=== PATIENT | male | born 1985 | race Caucasian/White ===

== ENCOUNTER 2017-02-23 01:23 | Inpatient (IN) | payer MEDICAID ==
[~2017-02-23] VITALS: Ht 172.7 cm; Wt 98.7 kg
[2017-02-23 01:25] VITALS: BP 143/82; PULSE 99; RESP 20; TEMP 97.9; O2SAT 99
[2017-02-23 02:24] LABS: AMPHETAMINE, URINE NEG (NEG); BARBITURATES, URINE NEG (NEG); COCAINE, URINE NEG (NEG)
[2017-02-23 02:26] LABS: AUTOMATED NEUTROPHIL # 2.5 TH/MM3 (1.8-7.7); BASOPHIL % 0.4 % (0.0-2.0); EOSINOPHIL # 0.1 TH/MM3 (0-0.4); EOSINOPHIL % 1.6 % (0.0-4.0); HEMATOCRIT 37.8 % (39.0-51.0); HEMO FLAGS DIFF FINAL; LYMPH % 38.7 % (9.0-44.0); LYMPHOCYTE # 1.8 TH/MM3 (1.0-4.8); MEAN CELL VOLUME 85.3 FL (80.0-100.0); MEAN CORPUSCULAR HGB CONC 35.2 % (32.0-36.0); MONO % 6.1 % (0.0-8.0); NEUT % 53.2 % (16.0-70.0); PLATELET COUNT 188 TH/MM3 (150-450); RED BLOOD COUNT 4.43 MIL/MM3 (4.50-5.90); RED CELL DISTRIBUTION WIDTH 13.9 % (11.6-17.2); WHITE BLOOD COUNT 4.6 TH/MM3 (4.0-11.0)
[2017-02-23 02:43] LABS: ACETAMINOPHEN LESS THAN 2.0 MCG/ML (10.0-30.0); ALT (GPT) 25 U/L (12-78); ANION GAP 10 MEQ/L (5-15); AST (GOT) 16 U/L (15-37); BICARBONATE 21.8 MEQ/L (21.0-32.0); BLOOD UREA NITROGEN 7 MG/DL (7-18); CHLORIDE 114 MEQ/L (98-107); GLOMERULAR FILTRATION RATE 105 ML/MIN (>89); POTASSIUM 3.6 MEQ/L (3.5-5.1); SODIUM (NA) 146 MEQ/L (136-145)
[2017-02-23 02:44] LABS: ALKALINE PHOSPHATASE 46 U/L (45-117); TOTAL BILIRUBIN ADULT 0.3 MG/DL (0.2-1.0)
--- NOTE | 2017-02-23 03:37 | PD ---
HPI Chief Complaint: Psychiatric Symptoms Time Seen by Provider: 03:32 Travel History International Travel<30 days: No Contact w/Intl Traveler<30days: No Traveled to known affect area: No History of Present Illness HPI 31-year-old white male presents emergency department on a voluntary basis for psychological evaluation. The patient states that he had moved down from [place] back in October. He has been homeless on the streets since then. He states that he has mental illness but does not know what the diagnosis is. He has been off medications for many months. He states that this week he has had problems with thoughts of self-harm. He has been hearing voices but he cannot hear what they're saying. He feels that they are within his head. Sometimes he feels as if he's hearing his own voice. He states that he has cut his wrists in the past. He has contemplated cutting his wrists as well as his thigh and hopes to . He also states that he's had thoughts of hurting other people. He does not have any plan on hurting anyone at this time. He has problems with anger he states. He denies any event that has occurred here recently has been in feel this way. 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 He does admit to marijuana and alcohol. No toxic ingestions. No medical complaints otherwise. PFSH Past Medical History Bipolar Disorder: Yes Depression: Yes Diminished Hearing: No Tetanus Vaccination: < 5 Years Influenza Vaccination: No Social History Alcohol Use: Yes (twice weekly) Tobacco Use: Yes (1 pack q 3 days) Substance Use: Yes (occ canabis) Allergies-Medications (Allergen,Severity, Reaction): Coded Allergies: No Known Allergies (Unverified , 02/23/17) Reported Meds & Prescriptions Reported Meds & Active Scripts Active No Active Prescriptions or Reported Medications Review of Systems Psychiatric: Positive: Depression, Suicidal Ideations, Disorder of Thought, Mood Disorder, Substance Abuse, Homicidal Ideation, No: Anxiety Physical Exam Narrative GENERAL: Well-nourished, well-developed patient. SKIN: Warm and dry. Old scars to the left wrist but no evidence of any acute injury HEAD: Normocephalic and atraumatic. EYES: No scleral icterus. No injection or drainage. ENT: No nasal drainage noted. Mucous membranes pink. Airway patent. NECK: Supple, trachea midline. Moves head freely without obvious discomfort. CARDIOVASCULAR: Regular rate and rhythm without murmurs, gallops, or rubs. RESPIRATORY: Breath sounds equal bilaterally. No accessory muscle use. GASTROINTESTINAL: Abdomen soft, non-tender, nondistended. EXTREMITIES: No cyanosis or edema. BACK: Nontender without obvious deformity. No CVA tenderness. NEURO: Patient is alert and oriented. no sensorimotor deficits. Nonfocal. Normal speech. PSYCH: No delusions. Positive auditory but no visual hallucinations. Data Data Last Documented VS Vital Signs Date Time Temp Pulse Resp B/P Pulse Ox O2 Delivery O2 Flow Rate FiO2 02/23/17 01:25 97.9 99 20 143/82 99 Orders Complete Blood Count With Diff (02/23/17 01:43) Comprehensive Metabolic Panel (02/23/17 01:43) Psych Screen (02/23/17 01:43) Drug Screen, Random Urine (02/23/17 01:43) Alcohol (Ethanol) (02/23/17 01:43) Salicylates (Aspirin) (02/23/17 01:43) Tylenol (Acetaminophen) (02/23/17 01:43) Labs Laboratory Tests Test 02/23/17 02:00 White Blood Count 4.6 TH/MM3 Red Blood Count 4.43 MIL/MM3 Hemoglobin 13.3 GM/DL Hematocrit 37.8 % Mean Corpuscular Volume 85.3 FL Mean Corpuscular Hemoglobin 30.0 PG Mean Corpuscular Hemoglobin 35.2 % Concent Red Cell Distribution Width 13.9 % Platelet Count 188 TH/MM3 Mean Platelet Volume 8.3 FL Neutrophils (%) (Auto) 53.2 % Lymphocytes (%) (Auto) 38.7 % Monocytes (%) (Auto) 6.1 % Eosinophils (%) (Auto) 1.6 % Basophils (%) (Auto) 0.4 % Neutrophils # (Auto) 2.5 TH/MM3 Lymphocytes # (Auto) 1.8 TH/MM3 Monocytes # (Auto) 0.3 TH/MM3 Eosinophils # (Auto) 0.1 TH/MM3 Basophils # (Auto) 0.0 TH/MM3 CBC Comment DIFF FINAL Differential Comment Sodium Level 146 MEQ/L Potassium Level 3.6 MEQ/L Chloride Level 114 MEQ/L Carbon Dioxide Level 21.8 MEQ/L Anion Gap 10 MEQ/L Blood Urea Nitrogen 7 MG/DL Creatinine 0.85 MG/DL Estimat Glomerular Filtration 105 ML/MIN Rate Random Glucose 83 MG/DL Calcium Level 8.6 MG/DL Total Bilirubin 0.3 MG/DL Aspartate Amino Transf 16 U/L (AST/SGOT) Alanine Aminotransferase 25 U/L (ALT/SGPT) Alkaline Phosphatase 46 U/L Total Protein 6.8 GM/DL Albumin 3.7 GM/DL Salicylates Level 1.9 MG/DL Urine Opiates Screen NEG Acetaminophen Level LESS THAN 2.0 MCG/ML Urine Barbiturates Screen NEG Urine Amphetamines Screen NEG Urine Benzodiazepines Screen NEG Urine Cocaine Screen NEG Urine Cannabinoids Screen POS Ethyl Alcohol Level 50 MG/DL MDM Medical Decision Making Medical Screen Exam Complete: Yes Emergency Medical Condition: Yes Medical Record Reviewed: Yes Interpretation(s) Laboratory Tests Test 02/23/17 02:00 White Blood Count 4.6 TH/MM3 Red Blood Count 4.43 MIL/MM3 Hemoglobin 13.3 GM/DL Hematocrit 37.8 % Mean Corpuscular Volume 85.3 FL Mean Corpuscular Hemoglobin 30.0 PG Mean Corpuscular Hemoglobin 35.2 % Concent Red Cell Distribution Width 13.9 % Platelet Count 188 TH/MM3 Mean Platelet Volume 8.3 FL Neutrophils (%) (Auto) 53.2 % Lymphocytes (%) (Auto) 38.7 % Monocytes (%) (Auto) 6.1 % Eosinophils (%) (Auto) 1.6 % Basophils (%) (Auto) 0.4 % Neutrophils # (Auto) 2.5 TH/MM3 Lymphocytes # (Auto) 1.8 TH/MM3 Monocytes # (Auto) 0.3 TH/MM3 Eosinophils # (Auto) 0.1 TH/MM3 Basophils # (Auto) 0.0 TH/MM3 CBC Comment DIFF FINAL Differential Comment Sodium Level 146 MEQ/L Potassium Level 3.6 MEQ/L Chloride Level 114 MEQ/L Carbon Dioxide Level 21.8 MEQ/L Anion Gap 10 MEQ/L Blood Urea Nitrogen 7 MG/DL Creatinine 0.85 MG/DL Estimat Glomerular Filtration 105 ML/MIN Rate Random Glucose 83 MG/DL Calcium Level 8.6 MG/DL Total Bilirubin 0.3 MG/DL Aspartate Amino Transf 16 U/L (AST/SGOT) Alanine Aminotransferase 25 U/L (ALT/SGPT) Alkaline Phosphatase 46 U/L Total Protein 6.8 GM/DL Albumin 3.7 GM/DL Salicylates Level 1.9 MG/DL Urine Opiates Screen NEG Acetaminophen Level LESS THAN 2.0 MCG/ML Urine Barbiturates Screen NEG Urine Amphetamines Screen NEG Urine Benzodiazepines Screen NEG Urine Cocaine Screen NEG Urine Cannabinoids Screen POS Ethyl Alcohol Level 50 MG/DL Differential Diagnosis MDM: High Differential diagnoses: Schizophrenia, schizoaffective disorder, bipolar, anxiety, depression, adjustment reaction, mood disorder NOS, ODD, depressive disorder NOS, dementia, dementia with agitation, psychosis NOS, substance induced mood disorder, intermittent explosive disorder, Asperger syndrome, infection,electrolyte abnormality, malingering. Narrative Course Mental health screening discussed with the patient. Psychiatric screen ordered. The patient been medically clear. This is bipolar with psychotic features Diagnosis Primary Impression: Bipolar disorder with psychotic features Additional Impression: PSA Patient Instructions: General Instructions Scripts No Active Prescriptions or Reported Meds Condition: Thierno Rodas Feb 23, 2017 03:37
[2017-02-23 04:48] VITALS: BP 139/64; PULSE 73; RESP 16; O2SAT 98
[2017-02-23 06:37] VITALS: BP 123/69; PULSE 72; RESP 18; O2SAT 98
[2017-02-23 09:39] VITALS: BP 128/73; PULSE 80; RESP 18; O2SAT 99
[2017-02-23 18:02] VITALS: BP 142/70; PULSE 75; RESP 18; O2SAT 100
[2017-02-23 22:18] VITALS: BP 120/75; PULSE 64; RESP 19; O2SAT 99
[2017-02-24 02:22] VITALS: BP 131/51; PULSE 61; RESP 19; O2SAT 100
[2017-02-24 06:08] VITALS: BP 119/72; PULSE 54; RESP 18; O2SAT 98
[2017-02-24 16:57] VITALS: BP 119/72; PULSE 54; RESP 18; O2SAT 98
[2017-02-24] MEDS ORDERED: ACETAMINOPHEN 325 MG TAB PO PRN (17:15)
[2017-02-24] MEDS ORDERED: MAGNESIUM HYDROXIDE SUSP 30 ML CUP PO PRN (17:15)
[2017-02-24] MEDS ORDERED: LORazepam 0.5 MG TAB PO PRN (17:15)
[2017-02-24] MEDS: NICOTINE 21 MG/24 HR PATCH T-DERMAL SCH (17:15)
[2017-02-24] MEDS ORDERED: ALUMINUM/MAGNESIUM/SIMETH 30 ML CUP PO PRN (17:15)
[2017-02-24] MEDS ORDERED: LORazepam 2 MG/ML VIAL IM PRN ×2 (17:15)
[2017-02-24 18:03] VITALS: BP 142/73; PULSE 66; RESP 16; TEMP 99.2; O2SAT 96
[2017-02-24] MEDS: LORazepam 1 MG TAB PO PRN (20:59)
[2017-02-25 06:14] VITALS: BP 134/77; PULSE 62; RESP 18; TEMP 97.8; O2SAT 98
[2017-02-25 08:23] LABS: ANION GAP 9 MEQ/L (5-15); BICARBONATE 26.3 MEQ/L (21.0-32.0); BLOOD UREA NITROGEN 15 MG/DL (7-18); CHLORIDE 106 MEQ/L (98-107); GLOMERULAR FILTRATION RATE 116 ML/MIN (>89); HDL CHOLESTEROL 52.8 MG/DL (40.0-60.0); LDL CHOLESTEROL 57 MG/DL (0-99); SODIUM (NA) 141 MEQ/L (136-145)
[2017-02-25] MEDS: NICOTINE 21 MG/24 HR PATCH T-DERMAL SCH (08:57)
[2017-02-25] MEDS: LORazepam 1 MG TAB PO PRN (09:16)
[2017-02-25] MEDS ORDERED: diphenhydrAMINE HCL 50 MG CAP PO PRN (09:45)
[2017-02-25] MEDS ORDERED: PILL SPLITTER OTHER PRN (10:15)
--- NOTE | 2017-02-25 11:24 | HHI.HP ---
Provisional Diagnosis Admission Date Feb 24, 2017 at 17:13 [place]. Bipolar affective disorder most recent episode mixed with psychotic features f 31.64, marijuana abuse f 12.10, alcohol abuse F10.10 Certification of Person's Competence To Provide Express and Informed Consent I have personally examined John Varma , a person being served at [facility] on, Feb 25, 2017 10:45. Express and informed consent means consent voluntarily given in writing, by a competent person, after sufficient explanation and disclosure of the subject matter involved to enable the person to make a knowing and willful decision without any element of force, fraud, deceit, duress, or other form of constraint or coercion. This person is 18 years of age or older, is not now known to be incompetent to consent to treatment with a guardian advocate, and does not have a health care surrogate or proxy currently making medical treatment decisions. I have found this person to be one of the following: [x] Competent to provide express and informed consent, as defined above, for voluntary admission to this facility and is competent to provide express and informed consent for treatment. He/she has the consistent capacity to make well reasoned, willful, and knowing decisions concerning his or her medical or mental health treatment. The person fully and consistently understands the purpose of the admission for examination/placement and is fully capable of personally exercising all rights assured [place] Incompetent to provide express and informed consent to voluntary admission, and this is incompetent to provide express and informed consent to treatment. The person must be transferred to involuntary status and a petition for a guardian advocate filed with the Circuit Court. [] Refusing to provide express and informed consent to voluntary admission but is competent to provide express and informed consent for treatment. The person must be discharged or transferred to involuntary status. Form shall be completed within 24 hours of a person's arrival at the receiving facility and filed in the clinical record of each person: 1. Admitted on a voluntary basis 2. Permitted to provide express and informed consent to his/her own treatment 3. Allowed to transfer from involuntary to voluntary status 4. Prior to permitting a person to consent to his or her own treatment after having been previously found incompetent to consent to treatment. History of Present Illness Capacity: Has Capacity HPI Patient is a 31-year-old white male who comes to the ED on a voluntary basis. Patient gives a 2 week plus history of increasing depression with increased auditory hallucinations of a threatening nature with increased suicidal ideation intent and plan to either cut his wrists, or drink rat poison, or step in front of traffic. Patient acknowledges increased initial and mid insomnia, with decreased energy, some decreased concentration and attention. Though he states his appetite is okay. Acknowledges increased auditory hallucinations of a threatening nature, and the suicidal ideation, in the ED urine toxicology positive for marijuana and a blood alcohol level of 50. Patient acknowledges a long history of alcohol abuse. 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 He has had brief incarceration related to the DUIs. He denies detox or rehabilitation. At the present time he states he drinks 2-3 times per week both beer and hard liquor, he acknowledges history of blackout spells passing out spells. And The DUIs as mentioned above. He also states he uses marijuana 2-3 times per day. He states a past history of hallucinogenic use, cocaine use and snorting, and misuse of opiates. He denies misuse of benzodiazepines. Patient also has a mental health history states 3 or 4 psychiatric hospitalizations in [place]. He states a history of suicide attempts leading to those admissions. He states he has been on Zoloft and Respinol in the past. He is been down here from [place] since October 2016. 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 Patient acknowledges that persistent auditory hallucinations of a demeaning insulting command nature telling him to harm himself. Patient denies any physical or sexual abuse as a child, denies any mental health or addictions issue in his family. Patient states she had 2 daughters, one daughter at 3 years of age of multiple abnormalities, he has surviving 10-year-old daughter in [place]. At this time patient does meet criteria for an inpatient psychiatric hospitalization considering his depression and his suicidal ideation intent and plan. I feel he does have capacity to sign voluntary and participate in his treatment. We will start him on Zoloft 25 mg daily and Resporal 1 mg twice a day. Hopefully this will be be a fairly short stay and we can return him to the community with probable follow-up through [facility] also referral to [facility] for voluntary substance abuse assessment. Refer also to AA/NA Review of Systems Constitutional: DENIES: Diaphoretic episodes, Fatigue, Fever, Weight gain, Weight loss, Chills, Dizziness, Change in appetite, Night Sweats Endocrine: DENIES: Heat/cold intolerance, Polydipsia, Polyuria, Polyphagia Eyes: DENIES: Blurred vision, Diplopia, Eye inflammation, Eye pain, Vision loss , Photosensitivity, Double Vision Ears, nose, mouth, throat: DENIES: Tinnitus, Hearing loss, Vertigo, Nasal discharge, Oral lesions, Throat pain, Hoarseness, Ear Pain, Running Nose, Epistaxis, Sinus Pain, Toothache, Odynophagia Respiratory: DENIES: Apneas, Cough, Snoring, Wheezing, Hemoptysis, Sputum production, Shortness of breath Cardiovascular: DENIES: Chest pain, Palpitations, Syncope, Dyspnea on Exertion , PND, Lower Extremity Edema, Orthopnea, Claudication Gastrointestinal: DENIES: Abdominal pain, Black stools, Bloody stools, Constipation, Diarrhea, Nausea, Vomiting, Difficulty Swallowing, Anorexia Genitourinary: DENIES: Sexual dysfunction, Urinary frequency, Urinary incontinence, Urgency, Hematuria, Dysuria, Nocturia, Penile Discharge, Testicular Pain, Testicular Swelling Musculoskeletal: DENIES: Joint pain, Muscle aches, Stiffness, Joint Swelling, Back pain, Neck pain Integumentary: DENIES: Abnormal pigmentation, Nail changes, Pruritus, Rash Hematologic/lymphatic: DENIES: Bruising, Lymphadenopathy Neurologic: DENIES: Abnormal gait, Headache, Localized weakness, Paresthesias, Seizures, Speech Problems, Tremor, Poor Balance Psychiatric: COMPLAINS OF: Mood changes, Depression, Hallucinations, Suicidal Ideation Past Psych History Psychological trauma history Denies physical or sexual abuse Violence risk - others (6 mos) Low Violence risk - self (6 mos) History of suicide attempts, now with suicidal ideation and plan Substance Abuse History Drugs/Alcohol past 12 months Active alcohol and marijuana Past Family Social History Coded Allergies: No Known Allergies (Unverified , 02/23/17) Past Medical History Medically cleared ED No Active Prescriptions or Reported Meds Current Medications Medications (Trade) Dose Ordered Sig/Selena Route Start Time Stop Time Status Last Admin (Tylenol) 650 mg Q4H PRN PO 02/24/17 17:15 (Milk Of Magnesia Liq) 30 ml DAILY PRN PO 02/24/17 17:15 (Mag-Al Plus Susp Liq) 30 ml Q6H PRN PO 02/24/17 17:15 (Habitrol 21 Mg Patch.24 Hr) 1 patch DAILY T-DERMAL 02/24/17 17:15 (Benadryl) 50 mg HS PRN PO 02/25/17 09:45 (Atarax) 50 mg Q6H PRN PO 02/25/17 09:45 (Zoloft) 25 mg DAILY PO 02/25/17 09:45 (risperDAL) 1 mg BID PO 02/25/17 09:45 (Pill Splitter) 1 ea UNSCH PRN OTHER 02/25/17 10:15 Family History Denies any mental health history or addictions history and family Social History Patient essentially homeless, though 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 Alcohol 2+ times per week marijuana daily Patient's Strengths (min. 2) Patient verbal [facility] cooperative Physical Exam Patient seen screened in ED exam reviewed and agreed with level signs blood pressure 134/77 pulse 62 respirations 18 Vital Signs Vital Signs Date Time Temp Pulse Resp B/P Pulse Ox O2 Delivery O2 Flow Rate FiO2 02/25/17 06:14 97.8 62 18 134/77 98 02/24/17 16:57 Room Air Mental Status Examination Alert oriented white male appears stated age stating, in his room with counselor Pearl present throughout session, calm cooperative with fair eye contact Appearance Clean and neat Speech: Unremarkable Orientation: x3 Memory: Unremarkable Thought Process: Logical, Organized Thought Content: Unremarkable, Other (auditory hallucinations of command nature ) Language [place] Fund of Knowledge Fair Hallucination Type: Auditory (of command threatening intimidating nature) Attention and Concentration: Other (fair) Suicidal Ideation: Yes (with intent and plan) Previous Suicide Attempts: Yes Homicidal Ideation: No Previous Homicide Attempts: No Insight: Poor Judgement: Poor Affect: Other (decreased range and intensity) Mood: Sad (and restricted) Motor Activity: Normal gait Assessment & Plan Problem List: (1) Alcohol abuse ICD Code: F10.10 (2) Bipolar disorder, current episode mixed, severe, with psychotic features ICD Code: F31.64 (3) Marijuana abuse ICD Code: F12.10 Assessment & Plan Estimated LOS: days at this time patient does meet criteria for inpatient psychiatric hospitalization. I feel he does have capacity to agreed to admission and medication management. We'll start patient on medication as mentioned above who was be fairly short stay with referral to services of the community Discharge Planning To be determined Request HC Surrog/Guard Advoc?: No Angelito Aranda MD Feb 25, 2017 11:24
[2017-02-25] MEDS: risperiDONE 1 MG TAB PO SCH ×2 (12:00→20:34)
[2017-02-25] MEDS: SERTRALINE HCL 50 MG TAB PO SCH (12:00)
[2017-02-25] MEDS ORDERED: *morphine SULFATE 8 MG/ML PERIprocedure ONLY ONE (12:51)
[2017-02-25 16:34] LABS: HEMOGLOBIN A1a 1.1 %; HEMOGLOBIN A1b 0.7 %; HEMOGLOBIN Ao 87.3 %; HEMOGLOBIN F 0.8 %; HEMOGLOBIN LA1C 1.7 %; HEMOGLOBIN P3 3.2 %
[2017-02-25 18:21] VITALS: BP 119/71; PULSE 80; RESP 18; TEMP 98.1; O2SAT 98
[2017-02-25] MEDS: hydrOXYzine HCL 50 MG TAB PO PRN (21:44)
[2017-02-26 06:41] VITALS: BP 126/68; PULSE 68; RESP 17; TEMP 96.6; O2SAT 99
[2017-02-26 08:36] LABS: ANION GAP 7 MEQ/L (5-15); AST (GOT) 9 U/L (15-37); BICARBONATE 26.2 MEQ/L (21.0-32.0); BLOOD UREA NITROGEN 16 MG/DL (7-18); CHLORIDE 109 MEQ/L (98-107); GLOMERULAR FILTRATION RATE 118 ML/MIN (>89); POTASSIUM 4.2 MEQ/L (3.5-5.1); SODIUM (NA) 142 MEQ/L (136-145)
[2017-02-26 08:47] LABS: ALKALINE PHOSPHATASE 41 U/L (45-117); ALT (GPT) 20 U/L (12-78); FREE T4 0.95 NG/DL (0.76-1.46); TOTAL BILIRUBIN ADULT 0.4 MG/DL (0.2-1.0)
[2017-02-26] MEDS ORDERED: NICOTINE 21 MG/24 HR PATCH T-DERMAL SCH (09:00)
[2017-02-26] MEDS: risperiDONE 1 MG TAB PO SCH ×2 (09:30→20:57)
[2017-02-26] MEDS: SERTRALINE HCL 50 MG TAB PO SCH (09:30)
[2017-02-26] MEDS: NICOTINE 21 MG/24 HR PATCH T-DERMAL SCH (09:30)
--- NOTE | 2017-02-26 14:32 | HHI.PYPN ---
Subjective Remarks Patient seen in the [facility] with nurse Yaima patient showing some slight increase in his affect though he still voices depression stating his suicidality went from a 10/10 to an 8/10. He states the voices have markedly diminished lower still intermittently present less intrusive. Compliant medications Review of Systems Except as stated in HPI: all other systems reviewed are Neg Objective Alert: Yes [place]: Person, Place, Date Mood: Calm, Depressed Affect: Restricted Memory Intact: Comment (poor) Hallucinations: Auditory (decreased) Delusions: No Delusion Type: Other (denies) Suicidal: Ideation (is decreased from 10 over 10-8) Homicidal: Ideation (denies) Insight/Judgement Very poor Labs Test 02/26/17 07:06 Sodium Level 142 MEQ/L Potassium Level 4.2 MEQ/L Chloride Level 109 MEQ/L Carbon Dioxide Level 26.2 MEQ/L Anion Gap 7 MEQ/L Blood Urea Nitrogen 16 MG/DL Creatinine 0.77 MG/DL Estimat Glomerular Filtration 118 ML/MIN Rate Random Glucose 78 MG/DL Calcium Level 8.8 MG/DL Total Bilirubin 0.4 MG/DL Aspartate Amino Transf 9 U/L (AST/SGOT) Alanine Aminotransferase 20 U/L (ALT/SGPT) Alkaline Phosphatase 41 U/L Total Protein 6.5 GM/DL Albumin 3.6 GM/DL Free Thyroxine 0.95 NG/DL Thyroid Stimulating Hormone 1.460 uIU/ML 3rd Gen Vitals/IOs Vital Signs Date Time Temp Pulse Resp B/P Pulse Ox O2 Delivery O2 Flow Rate FiO2 02/26/17 06:41 96.6 68 17 126/68 99 02/24/17 16:57 Room Air Intake and Output 02/25/17 02/25/17 02/26/17 08:00 16:00 00:00 Intake Total 240 ml 720 ml Balance 240 ml 720 ml Assessment & Plan Problem List: (1) Alcohol abuse ICD Code: F10.10 (2) Bipolar disorder, current episode mixed, severe, with psychotic features ICD Code: F31.64 (3) Marijuana abuse ICD Code: F12.10 Assessment & Plan Estimated LOS: days patient continues depressed with suicidal ideation but somewhat softer. Voices have diminished also. Compliant medication. Justification for Cont. Inpt. At this time patient will decompensate in place to the lower level of care Discharge Planning To be determined Request HC Surrog/Guard Advoc?: No Caliendo,Angelito E. MD Feb 26, 2017 14:32
[2017-02-26 19:32] VITALS: BP 138/71; PULSE 74; RESP 16; TEMP 98; O2SAT 100
[2017-02-26] MEDS: hydrOXYzine HCL 50 MG TAB PO PRN (20:57)
[2017-02-27 05:42] VITALS: BP 130/91; PULSE 63; RESP 16; TEMP 98.1
[2017-02-27] MEDS: NICOTINE 21 MG/24 HR PATCH T-DERMAL SCH (09:00)
[2017-02-27] MEDS: SERTRALINE HCL 50 MG TAB PO SCH (09:21)
[2017-02-27] MEDS: risperiDONE 1 MG TAB PO SCH ×2 (09:21→21:04)
--- NOTE | 2017-02-27 14:21 | HHI.PYPN ---
Subjective Remarks Patient seen in day room with nurse Yaima. Patient calmer appears more focused and relaxed with better eye contact affect also appears calmer. He now denies suicidality and voices. Has been compliant with medication for now continue treatment Review of Systems Except as stated in HPI: all other systems reviewed are Neg Objective Alert: Yes [place]: Person, Place, Date Mood: Calm, Depressed (slightly improved) Affect: Restricted (improving) Memory Intact: Comment (poor) Hallucinations: Auditory (decreased) Delusions: No Delusion Type: Other (denies) Suicidal: Ideation (denies) Homicidal: Ideation (denies) Insight/Judgment Poor Vitals/IOs Vital Signs Date Time Temp Pulse Resp B/P Pulse Ox O2 Delivery O2 Flow Rate FiO2 02/27/17 05:42 98.1 63 16 130/91 02/26/17 19:32 100 02/24/17 16:57 Room Air Assessment & Plan Problem List: (1) Alcohol abuse ICD Code: F10.10 (2) Bipolar disorder, current episode mixed, severe, with psychotic features ICD Code: F31.64 (3) Marijuana abuse ICD Code: F12.10 Assessment & Plan Estimated LOS: days patient showing decrease in his depression suicidality, compliant medications, for now continue treatment Justification for Cont. Inpt. At this time patient will decompensate if placed in the lower level of care Discharge Planning To be determined Request HC Surrog/Guard Advoc?: Angelito Stern MD Feb 27, 2017 14:20
[2017-02-27 19:00] VITALS: BP 123/63; PULSE 68; RESP 17; TEMP 98.4; O2SAT 98
[2017-02-27] MEDS: hydrOXYzine HCL 50 MG TAB PO PRN (21:04)
[2017-02-28 05:50] VITALS: BP 112/58; PULSE 57; RESP 18; TEMP 97.1; O2SAT 99
[2017-02-28] MEDS: NICOTINE 21 MG/24 HR PATCH T-DERMAL SCH (09:00)
[2017-02-28] MEDS: SERTRALINE HCL 50 MG TAB PO SCH (09:04)
[2017-02-28] MEDS: risperiDONE 1 MG TAB PO SCH ×2 (09:04→21:55)
--- NOTE | 2017-02-28 13:40 | HHI.PYPN ---
Subjective Remarks Patient was seen and case discussed with nursing. Patient is pleasant and cooperative with exam. Mildly anxious. Doing well with his withdrawal ciwa being 2. Says his psychosis is resolved. Mood is improving. Hoping to go back to work on Thursday. Denies suicidal ideation intent or plan Objective Alert: Yes [place]: Person, Place, Date Mood: Calm Affect: Restricted (improving) Memory Intact: Comment (poor) Hallucinations: Auditory (denies) Delusions: No Delusion Type: Other (denies) Suicidal: Ideation (denies) Homicidal: Ideation (denies) Insight/Judgment Fair Vitals/IOs Vital Signs Date Time Temp Pulse Resp B/P Pulse Ox O2 Delivery O2 Flow Rate FiO2 02/28/17 05:50 97.1 57 18 112/58 99 02/24/17 16:57 Room Air Intake and Output 02/27/17 02/27/17 02/28/17 08:00 16:00 00:00 Intake Total 360 ml 360 ml Balance 360 ml 360 ml Assessment & Plan Problem List: (1) Alcohol abuse ICD Code: F10.10 (2) Bipolar disorder, current episode mixed, severe, with psychotic features ICD Code: F31.64 (3) Marijuana abuse ICD Code: F12.10 Assessment & Plan Continue current treatment plan Justification for Cont. Inpt. Patient will decompensate in a less restrictive setting Request HC Surrog/Guard Advoc?: No Onur Peterson DO Feb 28, 2017 13:40
[2017-02-28 19:41] VITALS: BP 143/72; PULSE 77; RESP 18; TEMP 97.3; O2SAT 98
[2017-02-28] MEDS: hydrOXYzine HCL 50 MG TAB PO PRN (21:55)
[2017-03-01 06:12] VITALS: BP 105/59; PULSE 61; RESP 18; TEMP 98; O2SAT 97
[2017-03-01] MEDS: NICOTINE 21 MG/24 HR PATCH T-DERMAL SCH (09:00)
[2017-03-01] MEDS: SERTRALINE HCL 50 MG TAB PO SCH (09:36)
[2017-03-01] MEDS: risperiDONE 1 MG TAB PO SCH ×2 (09:36→20:39)
--- NOTE | 2017-03-01 16:50 | HHI.PYPN ---
Subjective Remarks Patient was seen and case discussed with nursing. Patient's CIWA is 1. No alcohol withdrawal symptoms today. Mood is "pretty good." Affect is bright and cheerful. He hopes to be discharged tomorrow. 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 Denies suicidal ideation intent or plan Objective Alert: Yes [place]: Person, Place, Date Mood: Calm Affect: Euthymic Memory Intact: Comment (improving) Hallucinations: Auditory (denies) Delusions: No Delusion Type: Other (denies) Suicidal: Ideation (denies) Homicidal: Ideation (denies) Insight/Judgment Improving Vitals/IOs Vital Signs Date Time Temp Pulse Resp B/P Pulse Ox O2 Delivery O2 Flow Rate FiO2 03/01/17 06:12 98.0 61 18 105/59 97 Assessment & Plan Problem List: (1) Alcohol abuse ICD Code: F10.10 (2) Bipolar disorder, current episode mixed, severe, with psychotic features ICD Code: F31.64 (3) Marijuana abuse ICD Code: F12.10 Assessment & Plan Continue current treatment plan Justification for Cont. Inpt. Patient will decompensate in a less restrictive setting Request HC Surrog/Guard Advoc?: No Onur Peterson DO Mar 01, 2017 16:50
[2017-03-01 19:52] VITALS: BP 123/69; PULSE 72; TEMP 98.1; O2SAT 99
[2017-03-01] MEDS: hydrOXYzine HCL 50 MG TAB PO PRN (20:40)
[2017-03-01 23:54] LABS: BLOOD, URINE NEG (NEG); GLUCOSE,URINE NEG (NEG); KETONE, URINE NEG (NEG); MUCUS URINE FEW /lpf (OCC); NITRITE,URINE NEG (NEG); URINE COLOR LIGHT-YELLOW (YELLW/STRAW)
[2017-03-01 23:55] LABS: COMMENT (UR) CULT NOT INDICATED; CULTURE IF INDICATED CULT NOT INDICATED
[2017-03-02 06:27] VITALS: BP 110/60; PULSE 66; RESP 18; TEMP 98.5; O2SAT 99
[2017-03-02] MEDS: NICOTINE 21 MG/24 HR PATCH T-DERMAL SCH (08:47)
[2017-03-02] MEDS: SERTRALINE HCL 50 MG TAB PO SCH (08:48)
[2017-03-02] MEDS: risperiDONE 1 MG TAB PO SCH (08:48)
[2017-03-02] MEDS ORDERED: ZOLO25TA PO (14:50)
[2017-03-02] MEDS ORDERED: RISP1 PO (14:50)
--- NOTE | 2017-03-02 14:55 | HHI.DS ---
Psychiatry Discharge Summary Inpatient Psychiatric care?: Yes Advance Directive: No Reason Not Provided: HAS NONE Mental Health AdvanceDirective: No Health Care Proxy: No Admission Admission Date Feb 24, 2017 at 17:13 Admission Diagnosis: (1) Marijuana abuse ICD Code: F12.10 (2) Bipolar disorder, current episode mixed, severe, with psychotic features ICD Code: F31.64 Brief History Patient is a 31-year-old white male who comes to the ED on a voluntary basis. Patient gives a 2 week plus history of increasing depression with increased auditory hallucinations of a threatening nature with increased suicidal ideation intent and plan to either cut his wrists, or drink rat poison, or step in front of traffic. Patient acknowledges increased initial and mid insomnia, with decreased energy, some decreased concentration and attention. Though he states his appetite is okay. Acknowledges increased auditory hallucinations of a threatening nature, and the suicidal ideation, in the ED urine toxicology positive for marijuana and a blood alcohol level of 50. Patient acknowledges a long history of alcohol abuse. 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 He has had brief incarceration related to the DUIs. He denies detox or rehabilitation. At the present time he states he drinks 2-3 times per week both beer and hard liquor, he acknowledges history of blackout spells passing out spells. And The DUIs as mentioned above. He also states he uses marijuana 2-3 times per day. He states a past history of hallucinogenic use, cocaine use and snorting, and misuse of opiates. He denies misuse of benzodiazepines. Patient also has a mental health history states 3 or 4 psychiatric hospitalizations in [place]. He states a history of suicide attempts leading to those admissions. He states he has been on Zoloft and Respinol in the past. He is been down here from [place] since October 2016. 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 Patient acknowledges that persistent auditory hallucinations of a demeaning insulting command nature telling him to harm himself. Patient denies any physical or sexual abuse as a child, denies any mental health or addictions issue in his family. Patient states she had 2 daughters, one daughter at 3 years of age of multiple abnormalities, he has surviving 10-year-old daughter in [place]. At this time patient does meet criteria for an inpatient psychiatric hospitalization considering his depression and his suicidal ideation intent and plan. I feel he does have capacity to sign voluntary and participate in his treatment. We will start him on Zoloft 25 mg daily and Resporal 1 mg twice a day. Hopefully this will be be a fairly short stay and we can return him to the community with probable follow-up through [facility] also referral to [facility] for voluntary substance abuse assessment. Refer also to AA/NA Tobacco Use In Past 30 Days: 5 or More Cigarettes/Day Alcohol Use: 2-3 Times Per Week Hospital Course Patient showed good behavior, purchase patient in milieu, compliance with medication from day of admission. His psychotic features slowly resolve. The suicidality also resolved. Patient discussed with treatment team and seen on unit today. Patient seems to denies suicidality homicidality voices or visions. Is aware of his need to maintain sobriety of marijuana and alcohol also. At the present time patient has met maximum benefit of this hospitalization. Patient to be discharged from [facility] 1 month with his Zoloft and Respinol. To follow-up [facility] outpatient medication services. Also refer NA/AA Results Blood Pressure 110 / 60 Vital Signs Date Time Temp Pulse Resp B/P Pulse Ox O2 Delivery O2 Flow Rate FiO2 03/02/17 06:27 98.5 66 18 110/60 99 Laboratory Tests Test 03/01/17 18:00 Urine Leukocyte Esterase TRACE (NEG) Urine Mucus FEW /lpf (OCC) Summary of Procedures None done Pending results at discharge: No Medications # of Antipsychotic meds at D/C: 1 Approp Antipsych med options 1 - Minimum of three failed multiple trials of monotherapy. 2 - Documented plan to taper to monotherapy due to previous use of multiple meds OR cross-taper in progress at D/C. 3 - Documentation of augmentation of Clozapine. 4 - Justification other than those listed in allowable values 1-3, document here : Discharge Discharge Date: Mar 02, 2017 Discharge Diagnosis: (1) Marijuana abuse Diagnosis: Secondary ICD Code: F12.10 (2) Bipolar disorder, current episode mixed, severe, with psychotic features Diagnosis: Principal ICD Code: F31.64 Mental Status Exam at Disch Alert oriented white male calm cooperative with us he is normal active, mood is euthymic with good range intensity of his affect. Speech rate and rhythm within normal limits though no formal thought disorders. No Auditory or visual hallucinations noted, no delusions noted insight and judgment poor to fair, cognition grossly intact Pt Condition on Discharge: Stable Discharge Disposition: Discharge Home Discharge Instructions Diet Instructions: As Tolerated, No Restrictions Activities you can perform: Regular-No Restrictions Scheduled Appointment: Kaleb Metz (also referred to AA/NA) Discharge Time > 30 minutes Discharge/Advance Care Plan Health Problems: (1) Alcohol abuse (2) Bipolar disorder, current episode mixed, severe, with psychotic features (3) Marijuana abuse Goals to promote your health * To prevent worsening of your condition and complications * To maintain your health at the optimal level Directions to meet your goals Take your medications as prescribed Follow your dietary instruction Follow activity as directed Keep your appointments as scheduled Take your immunizations and boosters as scheduled If your symptoms worsen call your PCP, if no PCP go to Urgent Care Center or Emergency Room For 15/06 questions related to your inpatient stay or results of tests pending at discharge, please contact Dr. Angelito Aranda at Smoking is Dangerous to Your Health. Avoid second hand smoking Angelito Aranda MD Mar 02, 2017 14:55
== END 2017-03-02 16:25 | disposition home or self-care (01) | DRG 885 ==
LOC: NEPJ 01:23 → H260 02-24 17:13
PROVIDERS: ADMIT Psychiatry & Neurology Psychiatry; ATTEND Psychiatry & Neurology Psychiatry
DX: F31.64 Bipolar disorder, current episode mixed, severe, with psychotic features (principal); R45.851 Suicidal ideations; F10.10 Alcohol abuse, uncomplicated; F12.10 Cannabis abuse, uncomplicated; G47.00 Insomnia, unspecified; Y90.2 Blood alcohol level of 40-59 mg/100 ml; F17.200 Nicotine dependence, unspecified, uncomplicated; Z59.0 Homelessness; Z91.5 Personal history of self-harm
CPT/HCPCS: 80048; 80053; 80061; 80307; 81001; 83036; 84439; 84443; 85025; 99285; J2270

== ENCOUNTER 2017-04-12 10:07 | Emergency (ER) | payer MEDICAID ==
[~2017-04-12] VITALS: Ht 175.3 cm; Wt 95.5 kg
[~2017-04-12 10:07] MED LIST: RISP1 PO; ZOLO25TA PO
[2017-04-12 10:18] VITALS: BP 136/85; PULSE 81; RESP 18; TEMP 97.9; O2SAT 97
--- NOTE | 2017-04-12 10:34 | PD ---
HPI Chief Complaint: Suicide Ideation/Attempt Time Seen by Provider: 10:16 Travel History International Travel<30 days: No Contact w/Intl Traveler<30days: No Traveled to known affect area: No History of Present Illness HPI 31yo M with PMH of bipolar disorder, chronic alcohol use, marajuana use presents to the ED under Marsh Act for suicidal ideation. Pt was admitted in 2016 to psych for similar complaint. Pt states he has thoughts of killing himself such as drowning but has not done anything. Pt has not been taking medications that he is suppose to be on. States he hears voices too. Denies any fever, cough, chest pain, sob, n/v, abdominal pain, focal weakness or numbness. Denies overdosing on medications. PFSH Past Medical History Bipolar Disorder: Yes Depression: Yes Cancer: No (per pt) Cardiovascular Problems: No (per pt) Diabetes: No (per pt) Diminished Hearing: No Genitourinary: No Headaches: No (per pt) Musculoskeletal: No Neurologic: No Psychiatric: Yes (pt has had previous hospitalizations for mental illness) Reproductive: No Respiratory: No Seizures: No (per pt) Past Surgical History Abdominal Surgery: No Cardiac Surgery: No Ear Surgery: No Endocrine Surgery: No Eye Surgery: No Genitourinary Surgery: No Gynecologic Surgery: No Oral Surgery: No Thoracic Surgery: No Social History Alcohol Use: Yes (twice weekly) Tobacco Use: Yes (1 pack q 3 days) Substance Use: Yes Allergies-Medications (Allergen,Severity, Reaction): Coded Allergies: No Known Allergies (Unverified , 04/12/17) Reported Meds & Prescriptions Reported Meds & Active Scripts Active Zoloft (Sertraline HCl) 25 Mg Tab 25 Mg PO DAILY Risperdal (Risperidone) 1 Mg Tab 1 Mg PO BID Review of Systems Except as stated in HPI: all other systems reviewed are Neg Physical Exam Narrative GENERAL: 31yo M not in distress. SKIN: Focused skin assessment warm/dry. HEAD: Atraumatic. Normocephalic. EYES: Pupils equal and round. No scleral icterus. No injection or drainage. ENT: No nasal bleeding or discharge. Mucous membranes pink and moist. NECK: Trachea midline. No JVD. CARDIOVASCULAR: Regular rate and rhythm. No murmur appreciated. RESPIRATORY: No accessory muscle use. Clear to auscultation. Breath sounds equal bilaterally. GASTROINTESTINAL: Abdomen soft, non-tender, nondistended. No rebound tenderness or guarding. MUSCULOSKELETAL: No obvious deformities. No clubbing. No cyanosis. No edema. NEUROLOGICAL: Awake and alert. No obvious cranial nerve deficits. Motor grossly within normal limits. Normal speech. PSYCHIATRIC: Appropriate mood and affect; insight and judgment normal. Data Data Last Documented VS Vital Signs Date Time Temp Pulse Resp B/P Pulse Ox O2 Delivery O2 Flow Rate FiO2 04/12/17 10:31 Room Air 04/12/17 10:18 97.9 81 18 136/85 97 Orders Complete Blood Count With Diff (04/12/17 10:19) Comprehensive Metabolic Panel (04/12/17 10:19) Psych Screen (04/12/17 10:19) Drug Screen, Random Urine (04/12/17 10:19) Alcohol (Ethanol) (04/12/17 10:19) Salicylates (Aspirin) (04/12/17 10:19) Tylenol (Acetaminophen) (04/12/17 10:19) Labs Laboratory Tests Test 04/12/17 10:30 White Blood Count 4.4 TH/MM3 Red Blood Count 4.55 MIL/MM3 Hemoglobin 13.1 GM/DL Hematocrit 39.1 % Mean Corpuscular Volume 85.9 FL Mean Corpuscular Hemoglobin 28.8 PG Mean Corpuscular Hemoglobin 33.6 % Concent Red Cell Distribution Width 14.2 % Platelet Count 185 TH/MM3 Mean Platelet Volume 8.7 FL Neutrophils (%) (Auto) 55.8 % Lymphocytes (%) (Auto) 36.1 % Monocytes (%) (Auto) 7.3 % Eosinophils (%) (Auto) 0.5 % Basophils (%) (Auto) 0.3 % Neutrophils # (Auto) 2.5 TH/MM3 Lymphocytes # (Auto) 1.6 TH/MM3 Monocytes # (Auto) 0.3 TH/MM3 Eosinophils # (Auto) 0.0 TH/MM3 Basophils # (Auto) 0.0 TH/MM3 CBC Comment DIFF FINAL Differential Comment Sodium Level 143 MEQ/L Potassium Level 4.1 MEQ/L Chloride Level 111 MEQ/L Carbon Dioxide Level 21.0 MEQ/L Anion Gap 11 MEQ/L Blood Urea Nitrogen 11 MG/DL Creatinine 0.83 MG/DL Estimat Glomerular Filtration 108 ML/MIN Rate Random Glucose 77 MG/DL Calcium Level 9.1 MG/DL Total Bilirubin 0.4 MG/DL Aspartate Amino Transf 21 U/L (AST/SGOT) Alanine Aminotransferase 27 U/L (ALT/SGPT) Alkaline Phosphatase 56 U/L Total Protein 7.6 GM/DL Albumin 4.3 GM/DL Salicylates Level 2.0 MG/DL Urine Opiates Screen NEG Acetaminophen Level LESS THAN 2.0 MCG/ML Urine Barbiturates Screen NEG Urine Amphetamines Screen NEG Urine Benzodiazepines Screen NEG Urine Cocaine Screen NEG Urine Cannabinoids Screen POS Ethyl Alcohol Level 113 MG/DL [facility] Medical Decision Making Medical Screen Exam Complete: Yes Emergency Medical Condition: Yes Differential Diagnosis Suicidal ideation vs. drug induced psychosis vs. bipolar disorder Narrative Course 31yo M with bipolar disorder here under marsh act for suicidal ideation. No complaints. Labs reviewed, no leukocytosis. CMP unremarkable. Positive cannabinoids. Alcohol 113. Acetaminophen negative. Salicylate 2.0. Pt is medically clear for psych evaluation. Diagnosis Primary Impression: Bipolar disorder with psychotic features Yari Valdivia DO April 12, 2017 10:34
[2017-04-12 11:16] LABS: AUTOMATED NEUTROPHIL # 2.5 TH/MM3 (1.8-7.7); BASOPHIL % 0.3 % (0.0-2.0); EOSINOPHIL % 0.5 % (0.0-4.0); HEMATOCRIT 39.1 % (39.0-51.0); HEMO FLAGS DIFF FINAL; LYMPH % 36.1 % (9.0-44.0); LYMPHOCYTE # 1.6 TH/MM3 (1.0-4.8); MEAN CELL VOLUME 85.9 FL (80.0-100.0); MEAN CORPUSCULAR HEMOGLOBIN 28.8 PG (27.0-34.0); MEAN CORPUSCULAR HGB CONC 33.6 % (32.0-36.0); MONO % 7.3 % (0.0-8.0); NEUT % 55.8 % (16.0-70.0); PLATELET COUNT 185 TH/MM3 (150-450); RED BLOOD COUNT 4.55 MIL/MM3 (4.50-5.90); RED CELL DISTRIBUTION WIDTH 14.2 % (11.6-17.2); WHITE BLOOD COUNT 4.4 TH/MM3 (4.0-11.0)
[2017-04-12 11:26] LABS: AMPHETAMINE, URINE NEG (NEG); BARBITURATES, URINE NEG (NEG); COCAINE, URINE NEG (NEG)
[2017-04-12 11:32] LABS: ANION GAP 11 MEQ/L (5-15)
[2017-04-12 11:35] LABS: ACETAMINOPHEN LESS THAN 2.0 MCG/ML (10.0-30.0); ALKALINE PHOSPHATASE 56 U/L (45-117); ALT (GPT) 27 U/L (12-78); AST (GOT) 21 U/L (15-37); BLOOD UREA NITROGEN 11 MG/DL (7-18); CHLORIDE 111 MEQ/L (98-107); GLOMERULAR FILTRATION RATE 108 ML/MIN (>89); POTASSIUM 4.1 MEQ/L (3.5-5.1); SODIUM (NA) 143 MEQ/L (136-145); TOTAL BILIRUBIN ADULT 0.4 MG/DL (0.2-1.0)
[2017-04-12 18:44] VITALS: BP 143/86; PULSE 109; TEMP 98.5; O2SAT 98
[2017-04-12 22:00] VITALS: BP 144/67; PULSE 61; RESP 18
[2017-04-13 02:03] VITALS: BP 114/69; PULSE 65; RESP 19; TEMP 98.6; O2SAT 99
== END 2017-04-13 03:59 ==
LOC: NEPC 10:07 → NEPJ 04-13 03:59
DX: F31.5 Bipolar disorder, current episode depressed, severe, with psychotic features (principal); R44.0 Auditory hallucinations; Z72.0 Tobacco use; Z86.59 Personal history of other mental and behavioral disorders
CPT/HCPCS: 80053; 80307; 85025; 99284

== ENCOUNTER 2017-05-01 23:17 | Emergency (ER) | payer MEDICAID, OTHER ==
[2017-05-01] MEDS ORDERED: HALOPERIDOL LACTATE 5 MG/ML AMP ONE (23:25)
[2017-05-01] MEDS ORDERED: LORazepam 2 MG/ML VIAL ONE (23:25)
[2017-05-01] MEDS ORDERED: HALOPERIDOL LACTATE 5 MG/ML AMP IM ONE (23:30)
[2017-05-01] MEDS ORDERED: LORazepam 2 MG/ML VIAL IM ONE (23:30)
--- NOTE | 2017-05-01 23:36 | PD ---
HPI Chief Complaint: Marsh act Time Seen by Provider: 23:23 Travel History International Travel<30 days: No Contact w/Intl Traveler<30days: No Traveled to known affect area: No History of Present Illness HPI 32-year-old male was Marsh acted and brought in by police department for suicidal threat. Patient has history of bipolar disorder with psychotic feature. Patient was found lying on the ground and threatened suicide this evening. Patient is combative and uncooperative and unable to provide any more information. PFSH Past Medical History Bipolar Disorder: Yes Anxiety: Yes Depression: Yes Cancer: No (per pt) Cardiovascular Problems: No (per pt) Diabetes: No Diminished Hearing: No Genitourinary: No Headaches: No (per pt) Musculoskeletal: No Neurologic: No Psychiatric: Yes (pt has had previous hospitalizations for mental illness) Reproductive: No Respiratory: No Immunizations Current: No Seizures: No (per pt) Past Surgical History Abdominal Surgery: No Cardiac Surgery: No Ear Surgery: No Endocrine Surgery: No Eye Surgery: No Genitourinary Surgery: Yes Joint Replacement: Yes (L KNEE SURGERY ) Oral Surgery: No Thoracic Surgery: No Social History Alcohol Use: Yes (everyday ) Tobacco Use: Yes (4-5 cig per day ) Substance Use: Yes Allergies-Medications (Allergen,Severity, Reaction): Coded Allergies: No Known Allergies (Unverified , 04/12/17) Reported Meds & Prescriptions Reported Meds & Active Scripts Active Zoloft (Sertraline HCl) 25 Mg Tab 25 Mg PO DAILY Risperdal (Risperidone) 1 Mg Tab 1 Mg PO BID Review of Systems General / Constitutional: No: Fever Eyes: No: Visual changes HENT: No: Headaches Cardiovascular: No: Chest Pain or Discomfort Respiratory: No: Shortness of Breath Gastrointestinal: No: Abdominal Pain Genitourinary: No: Dysuria Musculoskeletal: No: Pain Skin: No Rash Neurologic: No: Weakness Psychiatric: No: Depression Endocrine: No: Polydipsia Hematologic/Lymphatic: No: Easy Bruising Physical Exam Narrative GENERAL: Well-nourished, well-developed patient. SKIN: Focused skin assessment warm/dry. HEAD: Normocephalic. EYES: No scleral icterus. No injection or drainage. NECK: Supple, trachea midline. No JVD or lymphadenopathy. CARDIOVASCULAR: Regular rate and rhythm without murmurs, gallops, or rubs. RESPIRATORY: Breath sounds equal bilaterally. No accessory muscle use. GASTROINTESTINAL: Abdomen soft, non-tender, nondistended. MUSCULOSKELETAL: No cyanosis, or edema. BACK: Nontender without obvious deformity. No CVA tenderness. Neurologic exam: Patient's awake and alert and combative. Patient moves all extremity well. No obvious focal neurological deficit. Data Data Orders Haloperidol Inj (Haldol Inj) (05/01/17 23:30) Lorazepam Inj (Ativan Inj) (05/01/17 23:30) Complete Blood Count With Diff (05/01/17 23:25) Comprehensive Metabolic Panel (05/01/17 23:25) Psych Screen (05/01/17 23:25) Drug Screen, Random Urine (05/01/17 23:25) Alcohol (Ethanol) (05/01/17 23:25) Haloperidol Inj (Haldol Inj) (05/01/17 23:25) Lorazepam Inj (Ativan Inj) (05/01/17 23:25) Restraints Violent (05/01/17 23:26) MDM Medical Decision Making Medical Screen Exam Complete: Yes Emergency Medical Condition: Yes Differential Diagnosis Differential diagnosis including substance-induced mood disorder, bipolar disorder with manic phase, psychosis, schizophrenia. Narrative Course 32-year-old male was Marsh acted and brought in for suicidal threat. Patient's combative and uncooperative. Patient has history of bipolar disorder with psychotic feature. Haldol 5 mg IM. Ativan 2 mg IM. Richard Landeros MD May 01, 2017 23:36
[2017-05-01 23:47] VITALS: BP 152/94; PULSE 105; RESP 20; TEMP 98; O2SAT 100
[2017-05-01 23:50] LABS: AUTOMATED NEUTROPHIL # 3.8 TH/MM3 (1.8-7.7); BASOPHIL % 0.4 % (0.0-2.0); EOSINOPHIL % 0.4 % (0.0-4.0); HEMATOCRIT 38.6 % (39.0-51.0); HEMO FLAGS DIFF FINAL; LYMPH % 38.1 % (9.0-44.0); LYMPHOCYTE # 2.7 TH/MM3 (1.0-4.8); MEAN CELL VOLUME 84.6 FL (80.0-100.0); MEAN CORPUSCULAR HEMOGLOBIN 30.2 PG (27.0-34.0); MEAN CORPUSCULAR HGB CONC 35.7 % (32.0-36.0); MONO % 7.2 % (0.0-8.0); NEUT % 53.9 % (16.0-70.0); PLATELET COUNT 239 TH/MM3 (150-450); RED BLOOD COUNT 4.57 MIL/MM3 (4.50-5.90); RED CELL DISTRIBUTION WIDTH 13.5 % (11.6-17.2)
[2017-05-02 00:18] LABS: ANION GAP 13 MEQ/L (5-15); AST (GOT) 20 U/L (15-37); BICARBONATE 21.9 MEQ/L (21.0-32.0); BLOOD UREA NITROGEN 10 MG/DL (7-18); CHLORIDE 101 MEQ/L (98-107); GLOMERULAR FILTRATION RATE 99 ML/MIN (>89); POTASSIUM 3.5 MEQ/L (3.5-5.1); SODIUM (NA) 136 MEQ/L (136-145)
[2017-05-02 00:19] LABS: ALT (GPT) 31 U/L (12-78)
[2017-05-02 00:23] LABS: ALKALINE PHOSPHATASE 55 U/L (45-117); TOTAL BILIRUBIN ADULT 0.5 MG/DL (0.2-1.0)
--- NOTE | 2017-05-02 03:25 | PD ---
Physical Exam Date Seen by Provider: May 02, 2017 Time Seen by Provider: 03:22 Narrative For history of physical examination please see previous provider's note. I assumed care of patient at the end of my attending physician shift. At that time we were waiting for patient's labs to result for medical clearance. Data Data Last Documented VS Vital Signs Date Time Temp Pulse Resp B/P Pulse Ox O2 Delivery O2 Flow Rate FiO2 05/01/17 23:47 98.0 105 20 152/94 100 Orders Haloperidol Inj (Haldol Inj) (05/01/17 23:30) Lorazepam Inj (Ativan Inj) (05/01/17 23:30) Complete Blood Count With Diff (05/01/17 23:25) Comprehensive Metabolic Panel (05/01/17 23:25) Psych Screen (05/01/17 23:25) Drug Screen, Random Urine (05/01/17 23:25) Alcohol (Ethanol) (05/01/17 23:25) Haloperidol Inj (Haldol Inj) (05/01/17 23:25) Lorazepam Inj (Ativan Inj) (05/01/17 23:25) Restraints Violent (05/01/17 23:26) Labs Laboratory Tests Test 05/01/17 23:35 White Blood Count 7.0 TH/MM3 Red Blood Count 4.57 MIL/MM3 Hemoglobin 13.8 GM/DL Hematocrit 38.6 % Mean Corpuscular Volume 84.6 FL Mean Corpuscular Hemoglobin 30.2 PG Mean Corpuscular Hemoglobin 35.7 % Concent Red Cell Distribution Width 13.5 % Platelet Count 239 TH/MM3 Mean Platelet Volume 8.5 FL Neutrophils (%) (Auto) 53.9 % Lymphocytes (%) (Auto) 38.1 % Monocytes (%) (Auto) 7.2 % Eosinophils (%) (Auto) 0.4 % Basophils (%) (Auto) 0.4 % Neutrophils # (Auto) 3.8 TH/MM3 Lymphocytes # (Auto) 2.7 TH/MM3 Monocytes # (Auto) 0.5 TH/MM3 Eosinophils # (Auto) 0.0 TH/MM3 Basophils # (Auto) 0.0 TH/MM3 CBC Comment DIFF FINAL Differential Comment Sodium Level 136 MEQ/L Potassium Level 3.5 MEQ/L Chloride Level 101 MEQ/L Carbon Dioxide Level 21.9 MEQ/L Anion Gap 13 MEQ/L Blood Urea Nitrogen 10 MG/DL Creatinine 0.89 MG/DL Estimat Glomerular Filtration 99 ML/MIN Rate Random Glucose 89 MG/DL Calcium Level 8.3 MG/DL Total Bilirubin 0.5 MG/DL Aspartate Amino Transf 20 U/L (AST/SGOT) Alanine Aminotransferase 31 U/L (ALT/SGPT) Alkaline Phosphatase 55 U/L Total Protein 7.7 GM/DL Albumin 4.4 GM/DL Ethyl Alcohol Level 348 MG/DL [facility] Supervised Visit with LIDIA: Yes Interpretation(s) Vital Signs Date Time Temp Pulse Resp B/P Pulse Ox O2 Delivery O2 Flow Rate FiO2 05/01/17 23:47 98.0 105 20 152/94 100 05/01/17 23:47 105 20 Laboratory Tests Test 05/01/17 23:35 White Blood Count 7.0 TH/MM3 Red Blood Count 4.57 MIL/MM3 Hemoglobin 13.8 GM/DL Hematocrit 38.6 % Mean Corpuscular Volume 84.6 FL Mean Corpuscular Hemoglobin 30.2 PG Mean Corpuscular Hemoglobin 35.7 % Concent Red Cell Distribution Width 13.5 % Platelet Count 239 TH/MM3 Mean Platelet Volume 8.5 FL Neutrophils (%) (Auto) 53.9 % Lymphocytes (%) (Auto) 38.1 % Monocytes (%) (Auto) 7.2 % Eosinophils (%) (Auto) 0.4 % Basophils (%) (Auto) 0.4 % Neutrophils # (Auto) 3.8 TH/MM3 Lymphocytes # (Auto) 2.7 TH/MM3 Monocytes # (Auto) 0.5 TH/MM3 Eosinophils # (Auto) 0.0 TH/MM3 Basophils # (Auto) 0.0 TH/MM3 CBC Comment DIFF FINAL Differential Comment Sodium Level 136 MEQ/L Potassium Level 3.5 MEQ/L Chloride Level 101 MEQ/L Carbon Dioxide Level 21.9 MEQ/L Anion Gap 13 MEQ/L Blood Urea Nitrogen 10 MG/DL Creatinine 0.89 MG/DL Estimat Glomerular Filtration 99 ML/MIN Rate Random Glucose 89 MG/DL Calcium Level 8.3 MG/DL Total Bilirubin 0.5 MG/DL Aspartate Amino Transf 20 U/L (AST/SGOT) Alanine Aminotransferase 31 U/L (ALT/SGPT) Alkaline Phosphatase 55 U/L Total Protein 7.7 GM/DL Albumin 4.4 GM/DL Ethyl Alcohol Level 348 MG/DL Vital Signs Date Time Temp Pulse Resp B/P Pulse Ox O2 Delivery O2 Flow Rate FiO2 05/01/17 23:47 98.0 105 20 152/94 100 05/01/17 23:47 105 20 Narrative Course Patient is a 32-year-old male brought into the emergency department under a Marsh act for suicidal ideations. CBC is unremarkable Chemistry is unremarkable Blood alcohol level is 348 Patient's vital signs are stable, he is medically cleared for psychiatric evaluation at this time. Her only observe resting comfortably in no acute distress, he is no longer in restraints as he has been cooperative with maintaining position. Diagnosis Primary Impression: Medical clearance for psychiatric admission Additional Impressions: Alcohol intoxication Qualified Code: F10.920 - Alcohol intoxication, uncomplicated Suicidal ideation Condition: Stable Heidy Casas [facility] May 02, 2017 03:25
[2017-05-02 04:18] VITALS: BP 132/64; PULSE 89; RESP 20; O2SAT 100
[2017-05-02 07:19] VITALS: BP 109/55; PULSE 88; RESP 16; O2SAT 100
[2017-05-02 10:00] VITALS: BP 138/65; PULSE 94; RESP 18; O2SAT 98
[2017-05-02 14:24] VITALS: BP 145/81; PULSE 103; RESP 18; TEMP 98.6; O2SAT 99
--- NOTE | 2017-05-02 16:16 | PD ---
History of Present Illness Chief Complaint: Psychiatric Symptoms Time Seen by Provider: 16:00 Travel History International Travel<30 Days: No Contact w/Intl Traveler<30days: No Known affected area: No Legal Status Legal Status: Marsh Act Marsh Act Signed By: Sheela Johnson History of Present Illness: History of Present Illness HPI 32-year-old male with history of bipolar disorder who is under a BA initiated by DEREK . The BA alleges that he was found on the ground and appeared to be confused and could not follow basic commands. He stated that he wanted to kill himself. Patient was combative and uncooperative and unable to provide any more information at the time of arrival and required ETA. The patient presented with BAL of 348 Patient was allowed to sober up in a safe environment. At this time he is clinically sober. Calm, engaging and cooperative. He denies any hallucinatory process. dentis any suicidal or homicidal ideation, intent or plan. There is no ann marie. he reports medication compliance since he was discharged from [facility]. States " I just had too much to drink last night". . PFSH Past Medical History Bipolar Disorder: Yes Anxiety: Yes Depression: Yes Cancer: No (per pt) Cardiovascular Problems: No (per pt) Diabetes: No Diminished Hearing: No Gastrointestinal Disorders: No Genitourinary: No Headaches: No (per pt) Musculoskeletal: No Neurologic: No Psychiatric: Yes (pt has had previous hospitalizations for mental illness) Reproductive: No Respiratory: No Immunizations Current: No Seizures: No (per pt) Tetanus Vaccination: Unknown Past Surgical History Abdominal Surgery: No Cardiac Surgery: No Ear Surgery: No Endocrine Surgery: No Eye Surgery: No Genitourinary Surgery: Yes Joint Replacement: Yes (L KNEE SURGERY ) Neurologic Surgery: No Oral Surgery: No Thoracic Surgery: No Other Surgery: No Psychiatric History Psychiatric History Hx Psychiatric Treatment: Patient reports being inpatient in [place] 3-4 times for suicide attempts and also placed in the [facility] as well in 2016. Patient reports seeing a psychiatrist in [place]. History of Inpatient Treatment: Yes (Last hosp at [facility]) Guns or firearms in home: No Social History single male. Hx Alcohol Use: Yes (everyday ) Hx Tobacco Use: Yes (4-5 cig per day ) Hx Substance Use: Yes Substance Use Type: Alcohol, Marijuana, Prescription Medications, Benzos ( Valium,Xanax), Heroin, Cocaine, Synth Opiates-Pain Pills Hx of Substance Use Treatment: Yes Family Psychiatric History Negative Allergies-Medications (Allergen,Severity, Reaction): Coded Allergies: No Known Allergies (Unverified , 05/01/17) Reported Meds & Prescriptions Reported Meds & Active Scripts Active Zoloft (Sertraline HCl) 25 Mg Tab 25 Mg PO DAILY Risperdal (Risperidone) 1 Mg Tab 1 Mg PO BID Review of Systems Except as stated in HPI: all other systems reviewed are Neg Exam Alert: Yes [place]: Person (ox4) Mood: Calm Affect: Appropriate Speech: Clear, Logical Eye Contact: Normal Memory Intact: Comment (no impairmetn ) Hallucinations: Other (negative) Delusions: No Suicidal: Ideation (deneis any) Homicidal: Ideation (deneis any) Insight/Judgement Fair . Not impaired. MDM Medical Decision Making Medical Record Reviewed: Yes Assessment/Plan 32 year old male who presents cutely intoxicated under a BA. Patient is allowed to sober up clinically and at this time does not present any suicidal or homicidal ideation, no psychosis and no ann marie. At this time he does not meet criteria for BA. He will be discharged to follow up with [facility]. Orders Haloperidol Inj (Haldol Inj) (05/01/17 23:30) Lorazepam Inj (Ativan Inj) (05/01/17 23:30) Complete Blood Count With Diff (05/01/17 23:25) Comprehensive Metabolic Panel (05/01/17 23:25) Psych Screen (05/01/17 23:25) Drug Screen, Random Urine (05/01/17 23:25) Alcohol (Ethanol) (05/01/17 23:25) Haloperidol Inj (Haldol Inj) (05/01/17 23:25) Lorazepam Inj (Ativan Inj) (05/01/17 23:25) Restraints Violent (05/01/17 23:26) Diet Regular Basic (05/02/17 Breakfast) Diet Regular Basic (05/02/17 Lunch) Results Vital Signs Date Time Temp Pulse Resp B/P Pulse Ox O2 Delivery O2 Flow Rate FiO2 05/02/17 14:24 98.6 103 18 145/81 99 Room Air 05/02/17 10:00 94 18 138/65 98 Room Air 05/02/17 07:19 88 16 109/55 100 Room Air 05/02/17 04:18 89 20 132/64 100 05/01/17 23:47 98.0 105 20 152/94 100 05/01/17 23:47 105 20 Laboratory Tests Test 05/01/17 23:35 White Blood Count 7.0 Red Blood Count 4.57 Hemoglobin 13.8 Hematocrit 38.6 Mean Corpuscular Volume 84.6 Mean Corpuscular Hemoglobin 30.2 Mean Corpuscular Hemoglobin 35.7 Concent Red Cell Distribution Width 13.5 Platelet Count 239 Mean Platelet Volume 8.5 Neutrophils (%) (Auto) 53.9 Lymphocytes (%) (Auto) 38.1 Monocytes (%) (Auto) 7.2 Eosinophils (%) (Auto) 0.4 Basophils (%) (Auto) 0.4 Neutrophils # (Auto) 3.8 Lymphocytes # (Auto) 2.7 Monocytes # (Auto) 0.5 Eosinophils # (Auto) 0.0 Basophils # (Auto) 0.0 CBC Comment DIFF FINAL Differential Comment Sodium Level 136 Potassium Level 3.5 Chloride Level 101 Carbon Dioxide Level 21.9 Anion Gap 13 Blood Urea Nitrogen 10 Creatinine 0.89 Estimat Glomerular Filtration 99 Rate Random Glucose 89 Calcium Level 8.3 Total Bilirubin 0.5 Aspartate Amino Transf 20 (AST/SGOT) Alanine Aminotransferase 31 (ALT/SGPT) Alkaline Phosphatase 55 Total Protein 7.7 Albumin 4.4 Ethyl Alcohol Level 348 Diagnosis Primary Impression: Medical clearance for psychiatric admission Additional Impressions: Alcohol intoxication Suicidal ideation Med/ Other Pt Specific Info: No Change to Meds Disposition: 01 DISCHARGE HOME Condition: Stable Problem Qualifiers Additional Impressions: Alcohol intoxication Qualified Code: F10.920 - Alcohol intoxication, uncomplicated Ely Salinas [facility] May 02, 2017 16:16
== END 2017-05-02 16:59 | disposition home or self-care (01) ==
LOC: NEPD 23:17 → NEPJ 05-02 16:59
DX: F10.920 Alcohol use, unspecified with intoxication, uncomplicated (principal); F17.210 Nicotine dependence, cigarettes, uncomplicated; F31.9 Bipolar disorder, unspecified; Y90.8 Blood alcohol level of 240 mg/100 ml or more; Z79.899 Other long term (current) drug therapy
CPT/HCPCS: 80053; 80307; 85025; 96372; 99285; J1630; J2060